=== PATIENT | female | born 1985 | race American Indian/Alaskan Native ===

== ENCOUNTER 2016-12-20 00:28 | Emergency (ER) | payer MEDICAID ==
[2016-12-20] MEDS ORDERED: Cyclobenzaprine 10 MG Tab PO ONE (00:29)
[2016-12-20 00:34] VITALS: BP 126/89
[2016-12-20] MEDS ORDERED: Ibuprofen 600 MG Tab PO ONE (00:53)
--- NOTE | 2016-12-20 02:21 | EDM.PDOC ---
ED HPI GENERAL MEDICAL PROBLEM - General Chief Complaint: Flank Pain Stated Complaint: POSSIBLE KIDNEY INFECTION Time Seen by Provider: 12/20/16 00:40 Source of Information: Reports: Patient History Limitations: Reports: No Limitations - History of Present Illness INITIAL COMMENTS - FREE TEXT/NARRATIVE: ED with C/O left flank pain and concern of possible kidney infection. Increased frequency of voiding but has been pushing fluids. No burnign with urination. Pain worse with movement No fever or chills. Duration: Day(s): (2) Left Flank Pain Score (Numeric/FACES): 7 - Related Data Allergies Allergy/AdvReac Type Severity Reaction Status Date / Time No Known Allergies Allergy Verified 12/20/16 00:34 Home Meds: Home Meds . 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 ED EXAM,LOWER BACK PAIN/INJURY - Physical Exam Exam: See Below Exam Limited By: No Limitations General Appearance: Alert, No Apparent Distress Eye Exam: Bilateral Eye: EOMI Ears: Normal External Exam Nose: Normal Inspection Throat/Mouth: Normal Inspection Head: Atraumatic, Normocephalic Neck: Normal Inspection Respiratory/Chest: No Respiratory Distress, Lungs Clear, Normal Breath Sounds Cardiovascular: Normal Peripheral Pulses, Regular Rate, Rhythm GI/Abdominal: Normal Bowel Sounds, Soft Back Exam: CVA Tenderness (L), Muscle Spasm, Paraspinal Tenderness (lolumbar/ sacral left). No: CVA Tenderness (R), Vertebral Tenderness Extremities: Normal Inspection, Normal Range of Motion. No: Leg Pain Neurological: Alert, Normal Mood/Affect, Oriented x 3 Course - Vital Signs Last Recorded V/S: Last Vital Signs Temp 97.1 F 12/20/16 00:30 Pulse 68 12/20/16 00:30 Resp 18 12/20/16 00:30 BP 126/89 12/20/16 00:30 Pulse Ox 99 12/20/16 00:30 - Orders/Labs/Meds Labs: Laboratory Tests 12/20/16 Range/Units 01:11 Urine Color Yellow (YELLOW) Urine Appearance Clear (CLEAR) Urine pH 6.5 (5.0-9.0) Ur Specific [place] 1.010 (1.005-1.030) Urine Protein Negative (NEGATIVE) Urine Glucose (UA) Negative (NEGATIVE) Urine Ketones Negative (NEGATIVE) Urine Occult Blood Negative (NEGATIVE) Urine Nitrite Negative (NEGATIVE) Urine Bilirubin Negative (NEGATIVE) Urine Urobilinogen 0.2 (0.2-1.0) mg/dL Ur Leukocyte Esterase Negative (NEGATIVE) Urine RBC 0-5 /HPF Urine WBC 0-5 (0-5/HPF) /HPF Ur Epithelial Cells Few /HPF Urine Bacteria Occasional (0-FEW/HPF) /HPF Meds: Medications Discontinued Medications Generic Name Dose Route Start Last Admin Trade Name Roman PRN Reason Stop Dose Admin Cyclobenzaprine HCl Confirm 12/20/16 02:24 Flexeril Administered 12/20/16 02:25 Dose 10 mg .ROUTE .STK-MED ONE Cyclobenzaprine HCl 10 mg 12/20/16 00:29 Flexeril PO 12/20/16 00:30 .STK-MED ONE Ibuprofen 600 mg 12/20/16 00:53 12/20/16 00:56 Motrin PO 12/20/16 00:54 600 mg ONETIME ONE Administration Departure - Departure Time of Disposition: 02:16 Disposition: Home, Self-Care 01 Condition: Fair Clinical Impression: Low back pain Qualifiers: Chronicity: acute Back pain laterality: left Sciatica presence: without sciatica Qualified Code(s): M54.5 - Low back pain - Discharge Information Instructions: Back Pain, Adult, [id number] Referrals: Caren Prakash MD [Primary Care Provider] - Forms: ED Department Discharge Additional Instructions: rest alternate tylenol and ibuprofen every 4 hours as needed for discomfort flexeril 10mg one every 8 hours as needed for back spasm follow up in clinic if not improving in one week
[2016-12-20] MEDS ORDERED: Cyclobenzaprine 10 MG Tab ONE (02:24)
== END 2016-12-20 02:25 | disposition home or self-care (01) ==
LOC: DL.ED 00:28
DX: M54.5 Low back pain (principal); M62.830 Muscle spasm of back
CPT/HCPCS: 81001; 99284; A9270